=== PATIENT | male | born 1960 ===

== ENCOUNTER 2020-10-23 09:44 | Emergency (ER) | payer OTHER, MEDICARE ==
[~2020-10-23] VITALS: Ht 175.3 cm; Wt 90.7 kg
[2020-10-23] MEDS ORDERED: LAMO100 PO (09:56)
[2020-10-23] MEDS ORDERED: LEVSOD112 PO (09:56)
[2020-10-23 10:10] LABS: BASOPHILS PERCENT AUTO 1 % (0-2); EOSINOPHILS ABSOLUTE AUTO 0.14 K/mm3 (0.00-0.68); EOSINOPHILS PERCENT AUTO 2 % (0-6); Hematocrit 44.2 % (37.0-53.0); Hemoglobin 15.9 g/dL (13.5-17.5); IMMATURE GRAN ABSOLUTE AUTO 0.01 K/mm3 (0.00-0.10); IMMATURE GRAN PERCENT AUTO 0 % (0-1); LYMPHOCYTES ABSOLUTE AUTO 2.49 K/mm3 (0.84-5.20); LYMPHOCYTES PERCENT AUTO 34 % (21-46); MONOCYTES ABSOLUTE AUTO 0.69 K/mm3 (0.16-1.47); MONOCYTES PERCENT AUTO 9 % (4-13); Mean Corpuscular HGB 30.6 pg (26.0-34.0); Mean Corpuscular Volume 85 fL (80-100); Mean Platelet Volume 9.3 fL (9.1-12.4); NEUTROPHILS ABSOLUTE AUTO 3.89 K/mm3 (1.96-9.15); NEUTROPHILS PERCENT AUTO 53 % (41-73); Platelet Count 317 K/mm3 (150-400); RDW Coefficient Variation 12.1 % (11.7-14.2); RDW Standard Deviation 37.4 fL (35.1-46.3); White Blood Cell Count 7.32 K/mm3 (4.00-11.30)
[2020-10-23 10:31] LABS: Alanine Aminotransfer (ALT/SGP 26 U/L (12-78); Albumin, Blood 4.5 g/dL (3.4-5.0); Albumin/Globulin Ratio 1.3 (0.8-1.8); Alk Phos 71 U/L (50-136); Anion Gap 5 mmol/L (6-16); Aspartate Aminotrans (AST/SGOT 20 U/L (12-37); Bilirubin, Total 0.9 mg/dL (0.1-1.0); Blood Urea Nitrogen 12 mg/dL (8-24); CO2, Blood 26 mmol/L (21-32); Calcium, Blood 8.9 mg/dL (8.5-10.1); Chloride, Blood 108 mmol/L (98-108); Creatinine, Blood 0.86 mg/dL (0.60-1.20); Globulin, Blood 3.5 g/dL (2.2-4.0); Glomerular Filtration Rate >60 (60-); Glucose, Blood 109 mg/dL (70-99); Potassium, Blood 3.5 mmol/L (3.5-5.5); Sodium, Blood 139 mmol/L (136-145); Troponin I <0.015 ng/mL (0.000-0.040)
[2020-10-23] MEDS ORDERED: FLUT.05NI (11:35)
[2020-10-23] MEDS ORDERED: Norvasc5 MG PO (11:35)
[2020-10-23] MEDS ORDERED: PSEUDOEPHEDRINE30 M1 PO (11:35)
== END 2020-10-23 11:53 | disposition home or self-care (01) ==
LOC: ER 09:44
PROVIDERS: Emergency Medicine
DX: I10 Essential (primary) hypertension (principal); R07.89 Other chest pain; Z88.0 Allergy status to penicillin; Z79.899 Other long term (current) drug therapy
CPT/HCPCS: 36415; 71045; 80053; 83880; 84443; 84484; 85025; 93005; 93010; 99285-25

== ENCOUNTER → 2022-06-21 | Outpatient (CLI) | payer MEDICARE ==
[~2022-06-21] MED LIST: FLUT.05NI; LAMO100 PO; LEVSOD112 PO; Norvasc5 MG PO; PSEUDOEPHEDRINE30 M1 PO
== END | disposition home or self-care (01) ==
LOC: PLD 09:01 → LAB SHORT 09:01
DX: L82.1 Other seborrheic keratosis (principal)
CPT/HCPCS: 88305

== ENCOUNTER 2023-12-09 13:08 | Emergency (ER) | payer MEDICARE ==
[~2023-12-09] VITALS: Ht 175.3 cm; Wt 95.2 kg
[~2023-12-09 13:08] MED LIST changes: +Amoxicillin500 MG PO; +Cleocin HCl300 MG PO; +MOTION RELIEF25 MG PO; +Valium5 MG PO
[2023-12-09 13:10] VITALS: BP 178/87
[2023-12-09] MEDS ORDERED: TEMA7.5 PO (14:11)
== END 2023-12-09 14:29 | disposition home or self-care (01) ==
LOC: ER 13:08
DX: G47.00 Insomnia, unspecified (principal); F43.9 Reaction to severe stress, unspecified; F31.9 Bipolar disorder, unspecified; Z88.0 Allergy status to penicillin; Z79.890 Hormone replacement therapy; Z79.899 Other long term (current) drug therapy; Z87.891 Personal history of nicotine dependence
CPT/HCPCS: 99282

== ENCOUNTER 2023-12-15 11:19 | Emergency (ER) | payer OTHER ==
[~2023-12-15] VITALS: Ht 175.3 cm; Wt 95.2 kg
[~2023-12-15 11:19] MED LIST changes: +TEMA7.5 PO
[2023-12-15 11:28] VITALS: BP 155/79
== END 2023-12-15 12:29 | disposition home or self-care (01) ==
LOC: ER 11:19
DX: S63.502A Unspecified sprain of left wrist, initial encounter (principal); S53.402A Unspecified sprain of left elbow, initial encounter; W18.30XA Fall on same level, unspecified, initial encounter; Z87.891 Personal history of nicotine dependence; Z79.899 Other long term (current) drug therapy; Z88.0 Allergy status to penicillin
CPT/HCPCS: 73090; 99283-25

== ENCOUNTER 2024-02-24 00:52 | Emergency (ER) | payer OTHER ==
[~2024-02-24] VITALS: Ht 175.3 cm; Wt 91.6 kg
[2024-02-24 02:08] VITALS: BP 151/87
== END 2024-02-24 02:09 | disposition home or self-care (01) ==
LOC: ER 00:52
DX: I10 Essential (primary) hypertension (principal); F31.9 Bipolar disorder, unspecified; Z79.899 Other long term (current) drug therapy; Z88.0 Allergy status to penicillin; Z87.891 Personal history of nicotine dependence
CPT/HCPCS: 93005; 93010; 99283-25